=== PATIENT | female | born 1960 | race Caucasian/White ===

== ENCOUNTER → 2016-05-15 | Outpatient (CLI) | payer BC ==
--- NOTE | 2016-05-16 13:34 | MM ---
Reason for exam: screening (asymptomatic). Last mammogram was performed 1 year and 6 months ago. History: Patient is postmenopausal. Physical Findings: A clinical breast exam by your physician is recommended on an annual basis and results should be correlated with mammographic findings. MG Screening Mammo w CAD Bilateral CC and MLO view(s) were taken. Prior study comparison: November 16, 2014, bilateral MG screening mammo w CAD. December 31, 2012, bilateral digital screening mammo w/CAD. There are scattered fibroglandular densities. No significant changes when compared with prior studies. ASSESSMENT: Negative, BI-RAD 1 RECOMMENDATION: Routine screening mammogram of both breasts in 1 year.
== END | disposition home or self-care (01) ==
LOC: RADMAMWWP 09:13
PROVIDERS: ATTEND Family Medicine
DX: Z12.31 Encounter for screening mammogram for malignant neoplasm of breast (principal); Z78.0 Asymptomatic menopausal state

== ENCOUNTER → 2017-11-26 | Outpatient (CLI) | payer BC ==
--- NOTE | 2017-11-26 10:14 | XR ---
EXAMINATION TYPE: XR Hip Complete RT DATE OF EXAM: 11/26/2017 COMPARISON: NONE HISTORY: Pain TECHNIQUE: 2 views submitted FINDINGS: There is no evidence of erosive change or acute fracture. There is cystic change involving the acetabulum with hypertrophic changes along the lateral margin of the acetabulum. Spurring along the femoral head seen with moderate axial narrowing of the joint spac e. Surgical clip and calcification in the pelvis. IMPRESSION: 1. Arthropathy correlate for femoral acetabular impingement.
== END | disposition home or self-care (01) ==
LOC: RADXRMAIN 09:46
PROVIDERS: ATTEND Physician Assistant
DX: M16.11 Unilateral primary osteoarthritis, right hip (principal)
CPT/HCPCS: 73502

== ENCOUNTER → 2017-11-26 | Outpatient (CLI) | payer BC ==
--- NOTE | 2017-11-26 10:04 | BD ---
EXAMINATION TYPE: Axial Bone Density DATE OF EXAM: 11/26/2017 CLINICAL HISTORY: Height: 63.5 Weight: 155 FRAX RISK QUESTIONS: Alcohol (3 or more units per day): no Family History (Parent hip fracture): no Glucocorticoids (More than 3mos): no (Ex: prednisone, prednisolone, methylprednisolone, dexamethasone, and hydrocortisone). History of Fracture in Adulthood: yes Secondary Osteoporosis: 1. Type 1 Diabetes: no 2. Hyperthyroidism: no 3. Menopause before 45: complete hysterectomy age 46 4. Malnutrition: no 5. Chronic liver disease: no Rheumatoid Arthritis: unsure Current Tobacco Use: yes RISK FACTORS HISTORY OF: Surgery to Wrist (left): yes; for ganglion cyst removal Family History of Osteoporosis: yes, sister & mother Active: yes Diet low in dairy products/other sources of calcium: no Postmenopausal woman: yes Take estrogen and/or progesterone medications: no Lost more than 2 inches in height since high school: no Frequent falls: no Poor Health: no Hyperparathyroidism: no Adrenal Insufficiency: no MEDICATIONS: Prednisone or other steroids: no Thyroid Medications: no Osteoporosis Medications: no Additional Medications: Vitamin D, multivitamin Additional History: right hip pain for several years; history of broken toes & foot EXAM MEASUREMENTS: Bone mineral densitometry was performed using the [employer] System. Bone mineral density as measured about the Lumbar spine is: ----- L1-L4(G/cm2): 0.867 T Score Values are as follows: ----- L2: -2.8 ----- L3: -2.3 ----- L4: -2.3 ----- L1-L4: -2.6 Bone mineral density has: Increased 0.2% since study of: 12/15/2014 Bone mineral density about the R hip (g/cm2): 0.814 Bone mineral density about the L hip (g/cm2): 0.831 T Score values are as follows: -----R Neck: -1.6 -----L Neck: -1.5 -----R Total: -2.2 -----L Total: -1.7 Bone mineral density has: Decreased -3.5% since study of: 12/15/2014 IMPRESSION: Osteoporosis (T Score less than -2.5) persists in the low back. There remains increased fracture risk and therapy is usually indicated based on age. Re-Screen 1-2 years. NOTE: T-SCORE=SD OF THE YOUNG ADULT MEAN.
--- NOTE | 2017-11-27 11:31 | MM ---
Reason for exam: screening (asymptomatic). Last mammogram was performed 1 year and 6 months ago. History: Patient is postmenopausal and history of other cancer. Physical Findings: A clinical breast exam by your physician is recommended on an annual basis and results should be correlated with mammographic findings. MG Screening Mammo w CAD Bilateral CC and MLO view(s) were taken. Technologist: RT Lynette (R)(M) Prior study comparison: May 15, 2016, bilateral MG screening mammo w CAD. November 16, 2014, bilateral MG screening mammo w CAD. There are scattered fibroglandular densities. No significant changes when compared with prior studies. ASSESSMENT: Benign, BI-RAD 2 RECOMMENDATION: Routine screening mammogram of both breasts in 1 year.
== END | disposition home or self-care (01) ==
LOC: RADMAMWWP 08:57
PROVIDERS: ATTEND Family Medicine
DX: Z12.31 Encounter for screening mammogram for malignant neoplasm of breast (principal); M81.0 Age-related osteoporosis without current pathological fracture
CPT/HCPCS: 77067; 77080

== ENCOUNTER → 2018-12-02 | Outpatient (CLI) | payer BC ==
--- NOTE | 2018-12-03 11:30 | MM ---
Reason for exam: screening (asymptomatic). Last mammogram was performed 1 year ago. History: Patient is postmenopausal and history of other cancer. Physical Findings: A clinical breast exam by your physician is recommended on an annual basis and results should be correlated with mammographic findings. MG 3D Screening Mammo W/Cad Bilateral CC and MLO view(s) were taken. XCCL view(s) were taken of the left breast. Prior study comparison: November 26, 2017, bilateral MG screening mammo w CAD. May 15, 2016, bilateral MG screening mammo w CAD. There are scattered fibroglandular densities. Focal asymmetry right CC middle depth outer 24/62 view and second lesion MLO 20/63 anterior central view. This finding is changed when compared with previous exams. ASSESSMENT: Incomplete: need additional imaging evaluation, BI-RAD 0 RECOMMENDATION: Special view mammogram of the right breast. If lesion persists on supplemental views, image directed ultrasound is recommended. [facility] will attempt to contact patient to return for supplemental views and ultrasound if indicated.
== END | disposition home or self-care (01) ==
LOC: RADMAMWWP 10:21
PROVIDERS: ATTEND Family Medicine
DX: Z12.31 Encounter for screening mammogram for malignant neoplasm of breast (principal); Z78.0 Asymptomatic menopausal state
CPT/HCPCS: 77063; 77067

== ENCOUNTER → 2018-12-11 | Outpatient (CLI) | payer BC ==
--- NOTE | 2018-12-11 15:00 | MM ---
Reason for exam: additional evaluation requested from abnormal screening. Last mammogram was performed less than 1 month ago. History: Patient is postmenopausal and history of other cancer. Physical Findings: Nurse did not find any significant physical abnormalities on exam. MG 3D Work Up W/Cad RT Spot compression CC, spot compression MLO, and ML view(s) were taken of the right breast. Prior study comparison: December 02, 2018, bilateral MG 3d screening mammo w/cad. November 26, 2017, bilateral MG screening mammo w CAD. There are scattered fibroglandular densities. Nodular density outer half right breast. These results were verbally communicated with the patient and result sheet given to the patient on 12/11/18. ASSESSMENT: Incomplete: need additional imaging evaluation, BI-RAD 0 RECOMMENDATION: Ultrasound of the right breast.
--- NOTE | 2018-12-11 15:01 | USB ---
Reason for exam: additional evaluation requested from abnormal screening. History: Patient is postmenopausal and history of other cancer. US Breast Workup Limited RT Right limited breast ultrasound including focal area of concern, retroareolar and axilla demonstrates a 6 x 3 x 4mm oval, cystic lesion at 9 o'clock. These results were verbally communicated with the patient and result sheet given to the patient on 12/11/18. ASSESSMENT: Benign, BI-RAD 2 RECOMMENDATION: Return to routine screening mammogram schedule for both breasts.
== END | disposition home or self-care (01) ==
LOC: RADMAMWWP 13:32
PROVIDERS: ATTEND Family Medicine
DX: R92.8 Other abnormal and inconclusive findings on diagnostic imaging of breast (principal)
CPT/HCPCS: 77061; 77065

== ENCOUNTER 2019-12-31 08:21 | Day surgery (SDC) | payer BC ==
[2019-12-30 08:46] VITALS: BMI 28.0
[2019-12-31 08:50] VITALS: RESP 16; TEMP 98.2
[2019-12-31] MEDS: LACTATED RINGERS 1,000 ML IV SCH ×2 (09:00→09:10)
[2019-12-31] MEDS ORDERED: MIDAZOLAM 2 MG/2 ML VIAL ONE (09:11)
[2019-12-31] MEDS ORDERED: PROPOFOL 10 MG/ML 20 ML VIAL IV ONE (09:11)
[2019-12-31] MEDS ORDERED: fentaNYL (PF) 50 MCG/ML 2 ML AMP ONE (09:11)
--- NOTE | 2019-12-31 09:13 | P.GSHP ---
History of Present Illness H&P Date: 12/31/19 Chief Complaint: Screening colonoscopy This 59-year-old female who presents today for screening colonoscopy. Patient denies any significant GI complaints. Past Medical History Past Medical History: Hyperlipidemia Additional Past Medical History / Comment(s): SEASONAL ALLERGIES History of Any Multi-Drug Resistant Organisms: None Reported Past Surgical History: Appendectomy, Cholecystectomy, Hysterectomy Additional Past Surgical History / Comment(s): COLONOSCOPY Past Anesthesia/Blood Transfusion Reactions: No Reported Reaction Smoking Status: Current every day smoker - Past Family History Father Family Medical History: Cancer Mother Family Medical History: Cancer Sister(s) Family Medical History: Cancer Additional Family Medical History / Comment(s): HAS 2 SISTERS WITH THYROID CANCER Medications and Allergies Home Medications Medication Instructions Recorded Confirmed Type ALPRAZolam [Xanax] 0.5 mg PO BID PRN 12/25/17 12/31/19 History Albuterol Sulfate [Proair Hfa] 1 - 2 puff INHALATION Q6HR PRN 12/25/17 12/31/19 History Atorvastatin [Lipitor] 20 mg PO DAILY 12/25/17 12/31/19 History Fluticasone Nasal Armstrong [Flonase 1 spray EA NOSTRIL DAILY PRN 12/25/17 12/31/19 History Nasal Armstrong] Loratadine [Claritin] 10 mg PO DAILY 12/30/19 12/31/19 History Allergies Allergy/AdvReac Type Severity Reaction Status Date / Time clarithromycin [From Biaxin] AdvReac Nausea & Verified 12/31/19 08:45 Vomiting Penicillins AdvReac Nausea & Verified 12/31/19 08:45 Vomiting Surgical - Exam Vital Signs Temp Pulse Resp BP Pulse Ox 98.2 F 84 16 180/94 97 12/31/19 08:49 12/31/19 08:49 12/31/19 08:49 12/31/19 08:49 12/31/19 08:49 - General well developed, well nourished, no distress - Eyes PERRL - ENT normal pinna - Neck no masses - Respiratory normal expansion - Cardiovascular Rhythm: regular - Abdomen Abdomen: soft, non tender Assessment and Plan Assessment: We'll perform screen colonoscopy.
--- NOTE | 2019-12-31 09:23 | P.OP ---
Date of Procedure: 12/31/19 Preoperative Diagnosis: Screening colonoscopy Postoperative Diagnosis: Diverticulosis Procedure(s) Performed: Colonoscopy Anesthesia: MAC Surgeon: Cuong Chang Pathology: none sent Condition: stable Disposition: PACU Description of Procedure: The patient's placed on the endoscopy table in the lateral position. He received IV sedation. Digital rectal exam was performed which revealed no abnormalities. Flexible colonoscope was then placed patient anus passed rotator entire colon. The ileocecal valve visualized. The cecum, ascending transverse appeared normal in the descending; there is extensive diverticular changes. Scope was then brought back the rectum this appeared normal. Scope was wi thdrawn for patient. .
[2019-12-31 09:43] VITALS: BP 142/97; PULSE 66
== END 2019-12-31 09:58 | disposition home or self-care (01) ==
LOC: ORWHC2ENDO 08:21
PROVIDERS: ATTEND Surgery
DX: Z12.11 Encounter for screening for malignant neoplasm of colon (principal); K57.30 Diverticulosis of large intestine without perforation or abscess without bleeding; E78.5 Hyperlipidemia, unspecified; F17.210 Nicotine dependence, cigarettes, uncomplicated; J45.909 Unspecified asthma, uncomplicated; Z88.0 Allergy status to penicillin; Z88.1 Allergy status to other antibiotic agents; Z79.899 Other long term (current) drug therapy; Z90.710 Acquired absence of both cervix and uterus; Z98.891 History of uterine scar from previous surgery; Z98.890 Other specified postprocedural states; Z80.9 Family history of malignant neoplasm, unspecified; Z80.8 Family history of malignant neoplasm of other organs or systems
CPT/HCPCS: J2250; J3010; J2704; G0121; 45378

== ENCOUNTER → 2020-02-05 | Outpatient (CLI) | payer BC ==
--- NOTE | 2020-02-08 10:07 | MM ---
Reason for exam: screening (asymptomatic). Last mammogram was performed 1 year and 2 months ago. History: Patient is postmenopausal and history of other cancer. Physical Findings: A clinical breast exam by your physician is recommended on an annual basis and results should be correlated with mammographic findings. MG 3D Screening Mammo W/Cad Bilateral CC and MLO view(s) were taken. Prior study comparison: December 11, 2018, right breast MG 3d work up w/cad RT. December 02, 2018, bilateral MG 3d screening mammo w/cad. The breast tissue is heterogeneously dense. This may lower the sensitivity of mammography. There is no discrete abnormality. No significant changes when compared with prior studies. ASSESSMENT: Negative, BI-RAD 1 RECOMMENDATION: Routine screening mammogram of both breasts in 1 year.
== END | disposition home or self-care (01) ==
LOC: RADMAMWWP 09:54
PROVIDERS: ATTEND Family Medicine
DX: Z12.31 Encounter for screening mammogram for malignant neoplasm of breast (principal)
CPT/HCPCS: 77063; 77067

== ENCOUNTER → 2020-11-28 | Outpatient (CLI) | payer BC ==
--- NOTE | 2020-11-29 12:34 | MM ---
Reason for exam: screening (asymptomatic). Last mammogram was performed 10 months ago. History: Patient is postmenopausal and history of other cancer. Physical Findings: A clinical breast exam by your physician is recommended on an annual basis and results should be correlated with mammographic findings. MG 3D Screening Mammo W/Cad Bilateral CC and MLO view(s) were taken. Prior study comparison: February 05, 2020, bilateral MG 3d screening mammo w/cad. December 11, 2018, right breast MG 3d work up w/cad RT. There are scattered fibroglandular densities. There is no discrete abnormality. ASSESSMENT: Negative, BI-RAD 1 RECOMMENDATION: Routine screening mammogram of both breasts in 1 year.
== END | disposition home or self-care (01) ==
LOC: RADMAMWWP 13:37
PROVIDERS: ATTEND Family Medicine
DX: Z12.31 Encounter for screening mammogram for malignant neoplasm of breast (principal); Z78.0 Asymptomatic menopausal state
CPT/HCPCS: 77063; 77067

== ENCOUNTER → 2021-05-03 | Outpatient (CLI) | payer BC ==
--- NOTE | 2021-05-03 10:21 | BD ---
EXAMINATION TYPE: Axial Bone Density DATE OF EXAM: 05/03/2021 COMPARISON: NONE CLINICAL HISTORY: 60 years year old Female. ICD-10 CODE: Z78.0 MENOPAUSAL STATE Height: 5 FT 3 1/2 IN Weight: 158 FRAX RISK QUESTIONS: Alcohol (3 or more units per day): NO Family History (Parent hip fracture): NO Glucocorticoids (More than 3mos): NO (Ex: prednisone, prednisolone, methylprednisolone, dexamethasone, and hydrocortisone). History of Fracture in Adulthood: YES Secondary Osteoporosis: 1. Type 1 Diabetes: NO 2. Hyperthyroidism: NO 3. Menopause before 45: YES 4. Malnutrition: NO 5. Chronic liver disease: NO Rheumatoid Arthritis: NO Current Tobacco Use: YES RISK FACTORS HISTORY OF: Surgery to Spine/Hip(right/left)/Wrist (right/left): NO Family History of Osteoporosis: YES Active: YES Diet low in dairy products/other sources of calcium: NO Postmenopausal woman: YES Take estrogen and/or progesterone medications: NO Lost more than 2 inches in height since high school: NO Frequent falls: NO Poor Health: GOOD Hyperparathyroidism: NO Adrenal Insufficiency: NO MEDICATIONS: Additional Medications: LIPITOR, ALLERGY MEDS, FLONASE, INHALER FOR ASTHMA Additional History: EXAM MEASUREMENTS: Bone mineral densitometry was performed using the [employer] System. Bone mineral density as measured about the Lumbar spine is: ----- L1-L4(G/cm2): 0.885 T Score Values are as follows: ----- L1: -3.3 ----- L2: -2.8 ----- L3: -2.2 ----- L4: -1.9 ----- L1-L4: -2.5 Bone mineral density has: INCREASED 2.3 % since study of: 2017 Bone mineral density about the R hip (g/cm2): 0.787 Bone mineral density about the L hip (g/cm2): 0.800 T Score values are as follows: -----R Neck: -1.8 -----L Neck: -1.7 -----R Total: --2.4 -----L Total: -2.0 Bone mineral density has: DECREASED -4.3 % since study of: 2018 FRAX%s: The graph provided illustrates a 15.2 % chance for a major osteoporotic fx and a 2.9 % chance for the hips probability for fx in 10 years time. IMPRESSION: Osteoporosis lumbar spine NOTE: T-SCORE=SD OF THE YOUNG ADULT MEAN.
== END | disposition home or self-care (01) ==
LOC: RADBDWWP 09:11
PROVIDERS: ATTEND Family Medicine
DX: M81.0 Age-related osteoporosis without current pathological fracture (principal); Z78.0 Asymptomatic menopausal state
CPT/HCPCS: 77080

== ENCOUNTER → 2021-09-15 | Outpatient (CLI) | payer BC ==
[~2021-09-15] MED LIST: REGADENOSON 0.4 MG/5 ML SYRINGE IV PRN
--- NOTE | 2021-09-15 10:50 | CA ---
Lexiscan Nuclear Stress Test Report Name: Nicci Palmer Exam Date: 09/15/2021 09:23 Exam Location: [place] Stress Ht (in): 64 Wt (lb): 158 BSA: 1.77 Ordering Phys: Artur Porter MD Referring Phys: German, Technologist: Josiah Summers Age: 61 Gender: F : 1960 Procedure CPT: Indications: I10,ESSENTIAL (PRIMARY) HYPERTENSION ICD-10 Codes: Patient History: Hypertension and shortness of breath Medications: Meds past 24 hrs: Pretest Chest Pain: STRESS TEST Lexiscan Protocol Exercise Duration (min:sec): 02:[address] Depressions (mm): Angina Score: Arriaga Score: Resting HR (bpm): 64 Peak HR (bpm): 111 Resting BP (mmHg): 142 / 78 Peak BP (mmHg): 148 / 68 MPHR: 161 Target HR: 137 % MPHR: 69 METS: 1.0 Total Dose: Peak Dose: Atropine: Double Product: [id number] BP Response: Stress Termination: infusion complete Stress Symptoms: Dyspnea and some epigastric pain. Resolved quickly Stress Summary: ECG ANALYSIS Resting ECG: Stress ECG: CONCLUSIONS Baseline EKG revealed normal sinus rhythm with minor nonspecific ST abnormality. With Lexiscan mentation the heart rate changing from exterior to 100 bpm and the blood pressure changed from 142/78-121/57 and came back to baseline. Patient had transient dyspnea. EKG remained unchanged. The nuclear scan results which are more pertinent will be reported by the radiologist Dr. Abigail Ojeda MD (Electronically Signed) Final Date: 15 September 2021 10:49
--- NOTE | 2021-09-15 11:47 | CA ---
Transthoracic Echo Report Name: Nicci Palmer Age: 61 Gender: F : 1960 Exam Date: 09/15/2021 08:45 Exam Location: [place] Echo Ht (in): 64 Wt (lb): 158 Ordering Physician: Artur Porter MD Attending/Referring Phys: [id number], German Radiosonde Operator Nimco Balbuena, [facility] Procedure CPT: Indications: I10,ESSENTIAL (PRIMARY) HYPERTENSION Cardiac Hx: Technical Quality: Good Contrast 1: Total Dose (mL): Contrast 2: Total Dose (mL): MEASUREMENTS (Male / Female) Normal Values 2D ECHO LV Diastolic Diameter PLAX 4.2 cm 4.2 - 5.9 / 3.9 - 5.3 cm LV Systolic Diameter PLAX 2.8 cm IVS Diastolic Thickness 1.1 cm 0.6 - 1.0 / 0.6 - 0.9 cm LVPW Diastolic Thickness 1.0 cm 0.6 - 1.0 / 0.6 - 0.9 cm LV Relative Wall Thickness 0.5 RV Internal Dim ED PLAX 2.9 cm LA Systolic Diameter LX 3.1 cm 3.0 - 4.0 / 2.7 - 3.8 cm LA Volume 42.6 cm??? 18 - 58 / 22 - 52 cm??? M-MODE Aortic Root Diameter MM 3.1 cm MV E Point Septal Separation 0.9 cm AV Cusp Separation MM 2.1 cm DOPPLER AV Peak Velocity 119.8 cm/s AV Peak Gradient 5.7 mmHg MV Area PHT 2.3 cm??? Mitral E Point Velocity 52.9 cm/s Mitral A Point Velocity 82.6 cm/s Mitral E to A Ratio 0.6 MV Deceleration Time 335.2 ms MV E' Velocity 3.7 cm/s Mitral E to MV E' Ratio 14.3 TR Peak Velocity 231.3 cm/s TR Peak Gradient 21.4 mmHg Right Ventricular Systolic Press 25.7 mmHg FINDINGS Left Ventricle Left ventricular ejection fraction is estimated at 55-60 %. Left ventricular cavity size normal. Borderline left ventricular hypertrophy. Right Ventricle Normal right ventricular size and function. Right ventricular systolic pressure within normal limits. Right Atrium Normal right atrial size. Left Atrium Normal left atrial size. No evidence for an atrial septal defect. Mitral Valve Structurally normal mitral valve. No mitral stenosis, regurgitation or prolapse. Aortic Valve Trileaflet aortic valve. No aortic valve stenosis or regurgitation. Tricuspid Valve Mild tricuspid regurgitation. Pulmonic Valve Structurally normal pulmonic valve. Pericardium Normal pericardium. No pericardial effusion. Aorta Normal size aortic root and proximal ascending aorta. CONCLUSIONS Normal LV size and systolic function. No significant abnormality on the Doppler exam. No pericardial effusion Previewed by: Dr. Abigail Ojeda MD (Electronically Signed) Final Date: 15 September 2021 11:46
--- NOTE | 2021-09-15 17:47 | NM ---
EXAMINATION TYPE: NM stress lexiscan cardiolite DATE OF EXAM: 09/15/2021 COMPARISON: NONE HISTORY: 61-year-old female I10, ESSENTIAL (PRIMARY) HYPERTENSION TECHNIQUE: After the intravenous administration of 9.4 mCi Tc 99m Sestamibi - Cardiolite resting SPE CT images acquired 50 minutes post injection. The patient received 0.4mg Lexiscan, 24.4 mCi Tc 99m Sestamibi - Stress images obtained [address] injection FINDINGS: Review of stress and rest SPECT images demonstrates no distinct perfusion abnormality. Gated analysi s shows global hypokinesis with an estimated left ventricular ejection fraction of 42 %. TID is calc ulated at 1.21, increased. IMPRESSION: Global hypokinesis with diminished LVEF of 42% and abnormally increased TID of 1.21. Further workup for potential multivessel balanced, inducible ischemia is advised.
== END | disposition home or self-care (01) ==
LOC: RADNMMAIN 07:48
PROVIDERS: ATTEND Family Medicine
DX: I07.1 Rheumatic tricuspid insufficiency (principal); I10 Essential (primary) hypertension
CPT/HCPCS: 93017; 93306; 78452; A9500; J2785

== ENCOUNTER → 2021-12-29 | Outpatient (CLI) | payer BC ==
--- NOTE | 2022-01-01 07:54 | MM ---
Reason for Exam: Screening (asymptomatic). Last mammogram was performed 1 year(s) and 1 month(s) ago. Patient History: Menarche at age 14. First Full-Term at age 25. Left ovary removed at age 46. Right ovary removed at age 46. Hysterectomy at age 46. Postmenopausal. Other cancer. Risk Values: Amy 5 year model risk: 1.2%. NCI Lifetime model risk: 6.7%. Prior Study Comparison: 12/11/2018 Right Diagnostic Mammogram, [facility]. 02/05/2020 Bilateral Screening Mammogram, [facility]. 11/28/2020 Bilateral Screening Mammogram, [facility]. Tissue Density: There are scattered fibroglandular densities. Findings: Analyzed By CAD. Stable 5 mm obscured mass in the upper outer aspect right breast from several prior mammograms. Benign-appearing right axillary lymph nodes redemonstrated. There is no suspicious new group of microcalcifications or new suspicious mass in either breast. Overall Assessment: Benign, BI-RAD 2 Management: Screening Mammogram of both breasts in 1 year. A clinical breast exam by your physician is recommended on an annual basis and results should be correlated with mammographic findings. Electronically signed and approved by: Darryn Lee M.D.
== END | disposition home or self-care (01) ==
LOC: RADMAMWWP 09:33
PROVIDERS: ATTEND Family Medicine
DX: Z12.31 Encounter for screening mammogram for malignant neoplasm of breast (principal); Z78.0 Asymptomatic menopausal state; Z98.890 Other specified postprocedural states
CPT/HCPCS: 77063; 77067

== ENCOUNTER → 2022-02-24 | Outpatient (CLI) | payer BC ==
[2022-02-24 16:49] LABS: African American GFR (CKD) 109.9 (60.0-200.0); Anion Gap 10.7 mmol/L (10.00-18.00); BUN/Creat Ratio 10.71 Ratio (12.00-20.00); Blood Urea Nitrogen 7.5 mg/dL (9.0-27.0); Calcium 9.8 mg/dL (8.7-10.3); Carbon Dioxide 28.3 mmol/L (20.0-27.5); Magnesium 1.8 mg/dL (1.5-2.4); Non-African American GFR(CKD) 94.8 (60.0-200.0); Potassium 4.4 mmol/L (3.5-5.5)
== END | disposition home or self-care (01) ==
LOC: LABWHC1 11:12
PROVIDERS: ATTEND Nurse Practitioner Adult Health
DX: I10 Essential (primary) hypertension (principal)
CPT/HCPCS: 36415; 80048; 83735

== ENCOUNTER → 2023-01-23 | Outpatient (CLI) | payer BC ==
--- NOTE | 2023-01-27 18:02 | MM ---
Reason for Exam: Screening (asymptomatic). Last mammogram was performed 1 year(s) and 1 month(s) ago. Patient History: Menarche at age 14. First Full-Term at age 25. Left ovary removed at age 46. Right ovary removed at age 46. Hysterectomy at age 46. Postmenopausal. Other cancer. Risk Values: Amy 5 year model risk: 1.3%. NCI Lifetime model risk: 6.6%. Prior Study Comparison: 02/05/2020 Bilateral Screening Mammogram, [facility]. 11/28/2020 Bilateral Screening Mammogram, [facility]. 12/29/2021 Bilateral MG 3D screening mammo w/cad, [facility]. Tissue Density: There are scattered fibroglandular densities. Findings: Analyzed By CAD. Unchanged bilateral areas of asymmetric densities. There is no suspicious group of microcalcifications or new suspicious mass in either breast. Overall Assessment: Benign, BI-RAD 2 Management: Screening Mammogram of both breasts in 1 year. . Patient should continue monthly self-breast exams. A clinical breast exam by your physician is recommended on an annual basis. This exam should not preclude additional follow-up of suspicious palpable abnormalities. Note on Amy scores and lifetime risk: 1. A Amy score greater than 3% is considered moderate risk. If this is the case, consider specialist referral to assess eligibility for a risk reducing agent. 2. If overall lifetime risk for the development of breast cancer is 20% or higher, the patient may qualify for future screening with alternating mammogram and breast MRI. Electronically signed and approved by: Conrado Oshea M.D. Radiologist
== END | disposition home or self-care (01) ==
LOC: RADMAMWWP 11:12
PROVIDERS: ATTEND Family Medicine
DX: Z12.31 Encounter for screening mammogram for malignant neoplasm of breast (principal); Z78.0 Asymptomatic menopausal state
CPT/HCPCS: 77063; 77067

== ENCOUNTER → 2023-04-29 | Outpatient (CLI) | payer BC ==
--- NOTE | 2023-04-29 21:42 | XR ---
EXAMINATION TYPE: XR chest 2V DATE OF EXAM: 04/29/2023 5:14 PM CLINICAL INDICATION:Female, 62 years old with history of J45.21 MILD INTERMITTENT ASTHMA WITH (ACUTE) EXACERBATION; [facility] COMPARISON: None TECHNIQUE: XR chest 2V Frontal and lateral views of the chest. FINDINGS: Lungs/Pleura: There is no evidence of pleural effusion, focal consolidation, or pneumothorax. Pulmonary vascularity: Unremarkable. Heart/mediastinum: Cardiomediastinal silhouette is unremarkable. Musculoskeletal: No acute osseous pathology. IMPRESSION: No acute cardiopulmonary disease/process.
== END | disposition home or self-care (01) ==
LOC: RADXRMAIN 16:46
PROVIDERS: ATTEND Family Medicine
DX: J45.21 Mild intermittent asthma with (acute) exacerbation (principal)
CPT/HCPCS: 71046

== ENCOUNTER → 2023-06-18 | Outpatient (CLI) | payer BC | LOC: CPPFTMAIN 15:44 | PROVIDERS: ATTEND Family Medicine | DX: J45.909 Unspecified asthma, uncomplicated (principal); F17.200 Nicotine dependence, unspecified, uncomplicated; Z88.1 Allergy status to other antibiotic agents; Z88.0 Allergy status to penicillin | CPT/HCPCS: 94060; 94726; 94729 ==

== ENCOUNTER → 2024-02-05 | Outpatient (CLI) | payer BC ==
--- NOTE | 2024-02-06 08:07 | MM ---
Reason for Exam: Screening (asymptomatic). Last screening mammogram was performed 12 month(s) ago. Patient History: Menarche at age 14. First Full-Term at age 25. Left ovary removed at age 46. Right ovary removed at age 46. Hysterectomy at age 46. Postmenopausal. Other cancer. Risk Values: Amy 5 year model risk: 1.3%. NCI Lifetime model risk: 6.4%. Prior Study Comparison: 11/26/2017 Bilateral Screening Mammogram, [facility]. 12/02/2018 Bilateral Screening Mammogram, [facility]. 12/11/2018 Right Diagnostic Mammogram, [facility]. 02/05/2020 Bilateral Screening Mammogram, [facility]. 11/28/2020 Bilateral Screening Mammogram, [facility]. 12/29/2021 Bilateral MG 3D screening mammo w/cad, [facility]. 01/23/2023 Bilateral MG 3D screening mammo w/cad, [facility]. Tissue Density: There are scattered areas of fibroglandular density. Findings: Analyzed By CAD. There is no suspicious group of microcalcifications or new suspicious mass in either breast. Overall Assessment: Benign, BI-RAD 2 Management: Screening Mammogram of both breasts in 1 year. . Patient should continue monthly self-breast exams. A clinical breast exam by your physician is recommended on an annual basis. This exam should not preclude additional follow-up of suspicious palpable abnormalities. Note on Amy scores and lifetime risk: 1. A Amy score greater than 3% is considered moderate risk. If this is the case, consider specialist referral to assess eligibility for a risk reducing agent. 2. If overall lifetime risk for the development of breast cancer is 20% or higher, the patient may qualify for future screening with alternating mammogram and breast MRI. [facility], , 02/06/2024 8:03 AM. Electronically signed and approved by: Daryn Dukes M.D. Radiologis
== END | disposition home or self-care (01) ==
LOC: RADMAMWWP 10:01
PROVIDERS: ATTEND Family Medicine
DX: Z12.31 Encounter for screening mammogram for malignant neoplasm of breast (principal); R92.323 Mammographic fibroglandular density, bilateral breasts; Z78.0 Asymptomatic menopausal state; Z90.722 Acquired absence of ovaries, bilateral
CPT/HCPCS: 77063; 77067

== ENCOUNTER → 2024-08-28 | Outpatient (CLI) | payer BC ==
[2024-08-28 08:57] LABS: INR 0.9 (<1.2); Partial Thromboplastin Time 25.6 sec (22.0-30.0); Prothrombin Time 10.6 sec (10.0-12.5)
[2024-08-28 10:17] LABS: HCT 47.3 % (37.2-46.3); HGB 15.4 g/dL (12.0-15.0); MCH 29.4 pg (27.0-32.0); MCHC 32.6 g/dL (32.0-37.0); MCV 90.4 FL (80.0-97.0); NRBC Per 100 WBC 0 X 10*3/uL (0.00-0.01); Platelet Count 346 X 10*3/uL (140-440); RBC 5.23 X 10*6/uL (4.10-5.20); RDW 13.7 % (11.5-14.5); WBC 7.48 X 10*3/uL (4.50-10.00)
[2024-08-28 10:29] LABS: ALT 21 U/L (8-44); AST 21 U/L (13-35); Albumin 4.3 g/dL (3.8-4.9); Albumin/Globulin Ratio 1.95 Ratio (1.60-3.17); Alkaline Phosphatase 101 U/L (41-126); Anion Gap 9.70 mmol/L (4.00-12.00); BUN/Creat Ratio 16.00 Ratio (12.00-20.00); Blood Urea Nitrogen 9.6 mg/dL (9.0-27.0); Calcium 9.5 mg/dL (8.7-10.3); Carbon Dioxide 26.3 mmol/L (21.6-31.8); Chloride 99 mmol/L (96-109); Globulin 2.2 g/dL (1.6-3.3); Glucose 68 mg/dL (70-110); Potassium 4.4 mmol/L (3.5-5.5); Sodium 135 mmol/L (135-145); Total Protein 6.5 g/dL (6.2-8.2)
== END | disposition home or self-care (01) ==
LOC: LABPAT 07:34
PROVIDERS: ATTEND Orthopaedic Surgery
DX: Z01.812 Encounter for preprocedural laboratory examination (principal); Z22.322 Carrier or suspected carrier of Methicillin resistant Staphylococcus aureus; M16.11 Unilateral primary osteoarthritis, right hip; E11.9 Type 2 diabetes mellitus without complications
CPT/HCPCS: 80053; 83036; 85027; 85610; 85730; 86850; 86900; 86901; 87070

== ENCOUNTER 2024-09-04 13:43 | Day surgery (SDC) | payer BC ==
[2024-09-01 09:28] VITALS: BMI 28.8
[~2024-09-04 13:43] MED LIST changes: +LIDOCAINE 1% (10MG/ML) FOR IV START INTRADERMA PRN; +ONDANSETRON 4 MG/2 ML VIAL IVP PRN; -REGADENOSON 0.4 MG/5 ML SYRINGE IV PRN; +TRANEXAMIC 1,000 MG/100ML-NACL 1,000 MG in SALINE 1 100ML.BAG IV PRN; +TRANEXAMIC 1,000 MG/100ML-NACL 1,000 MG in SALINE 1 100ML.BAG IVPB PRN
[2024-09-04] MEDS: IV FLUID CONTINUATION 1,000 ML IV ONE (14:00)
[2024-09-04] MEDS: LACTATED RINGERS 1,000 ML IV SCH (14:22)
[2024-09-04] MEDS: KETOROLAC 15 MG/ML 1 ML VIAL IVP PRN (14:29)
[2024-09-04] MEDS: FAMOTIDINE 20 MG/2 ML VIAL IVP PRN (14:29)
[2024-09-04] MEDS: DEXAMETHASONE SOD PHOSPHATE 10 MG/ML 1 ML VIAL IV PRN (14:30)
[2024-09-04] MEDS: ONDANSETRON 4 MG/2 ML VIAL IVP ONE (14:30)
[2024-09-04] MEDS: ACETAMINOPHEN TAB 500 MG TAB PO PRN (14:30)
[2024-09-04] MEDS: DOCUSATE 100 MG CAP PO PRN (14:30)
[2024-09-04] MEDS: oxyCODONE ER 10 MG TAB.ER.12H PO PRN (14:30)
[2024-09-04] MEDS: fentaNYL (PF) 50 MCG/ML 2 ML AMP IVP PRN (14:55)
[2024-09-04] MEDS: MIDAZOLAM 2 MG/2 ML VIAL IV ONE (15:00)
[2024-09-04] MEDS ORDERED: ROCURONIUM 10 MG/ML (5 ML VIAL) IV ONE (15:12)
[2024-09-04] MEDS ORDERED: DEXAMETHASONE SOD PHOSPHATE 4 MG/ML 1 ML VIAL ONE (15:12)
[2024-09-04] MEDS ORDERED: NEOSTIGMINE 1 MG/ML 10 ML VIAL ONE (15:12)
[2024-09-04] MEDS ORDERED: LIDOCAINE 4% LTA KIT (4 ML) TOPICAL ONE (15:12)
[2024-09-04] MEDS ORDERED: TRANEXAMIC 1,000 MG/100ML-NACL PREMIX BAG ONE (15:12)
[2024-09-04] MEDS ORDERED: PROPOFOL 10 MG/ML 20 ML VIAL IV ONE (15:12)
[2024-09-04] MEDS ORDERED: GLYCOPYRROLATE 0.2 MG/ML 2 ML VIAL ONE (15:12)
[2024-09-04] MEDS ORDERED: ROPIVACAINE 5 MG/ML 30 ML VIAL ONE (15:12)
[2024-09-04] MEDS ORDERED: PHENYLEPHRINE-0.9% NACL SYG 1,000 MCG/10 ML SYRINGE ONE (15:12)
[2024-09-04] MEDS ORDERED: LIDOCAINE 1% INJ 10MG/ML (20 ML MDV) ONE (15:12)
[2024-09-04] MEDS ORDERED: SUCCINYLCHOLINE CHLORIDE 200 MG/10 ML VIAL IV ONE (15:12)
[2024-09-04] MEDS ORDERED: fentaNYL (PF) 50 MCG/ML 2 ML AMP ONE (15:12)
[2024-09-04] MEDS: ROPIVACAINE/EPI/CLONIDINE/KET 50 ML SYRINGE MISCELLANE PRN (15:49)
[2024-09-04] MEDS: LACTATED RINGERS 1,000 ML IV ONE (17:02)
[2024-09-04] MEDS ORDERED: TEMAZEPAM 15 MG CAP PO PRN (17:26)
[2024-09-04] MEDS ORDERED: HYDROmorphone 0.5 MG/0.5 ML SYRINGE IVP PRN ×2 (17:26)
[2024-09-04] MEDS ORDERED: NALOXONE 0.4 MG/ML 1 ML VIAL IV PRN (17:26)
[2024-09-04] MEDS ORDERED: HYDROcodone/APAP 5-325MG 1 EACH TAB PO PRN (17:26)
[2024-09-04] MEDS ORDERED: MAGNESIUM HYDROXIDE 2,400 MG/30 ML CUP PO PRN (17:26)
[2024-09-04] MEDS ORDERED: hydrOXYzine HCL 25 MG TAB PO PRN (17:26)
[2024-09-04] MEDS ORDERED: ONDANSETRON 4 MG/2 ML VIAL IVP PRN (17:26)
[2024-09-04] MEDS ORDERED: diazePAM 5 MG TAB PO PRN ×2 (17:26)
[2024-09-04] MEDS ORDERED: HYDROmorphone 1 MG/ML 1 ML SYRINGE IVP PRN (17:26)
--- NOTE | 2024-09-04 17:26 | P.OP ---
Date of Procedure: 09/04/24 Preoperative Diagnosis: 1. Severe right hip osteoarthritis 2. Current everyday cigarette smoker 3. Severe osteopenia Postoperative Diagnosis: Same Procedure(s) Performed: 1. Right direct anterior total hip arthroplasty 2. Application of negative pressure incisional wound VAC, right hip, less than 50 cm, DME, incision measuring 12 cm Implants: 1. Abhijit Trident II Acetabular Cup, Size #52 2. [place] Accolade C Size #4 Femoral Stem, Standard Offset 3. Biolox delta femoral head, 36 mm, +2.5 mm neck Anesthesia: GETA, regional Surgeon: Javed Evans Journeyman Plumber #1: Dain Salinas Estimated Blood Loss (ml): 300 IV fluids (ml): 800 Pathology: none sent Condition: stable Disposition: PACU Indications for Procedure: I had a long discussion with the patient in the office on the potential risks and complications of an elective total hip replacement through a direct anterior approach. Risks discussed include, but are certainly not limited to, risks from anesthesia, superficial infection requiring local wound care or antibiotics, deep rogers-prosthetic joint infection and the treatment required to eradicate infection, intraoperative fracture, postoperative periprosthetic fracture, bianca ge to local blood vessels or nerves particularly the lateral femoral cutaneous nerve, delayed wound healing requiring local wound care or possibly surgical debridement, hip dislocation, leg length discrepancy, soft tissue irritation around the total hip implant such as iliopsoas tendinitis or trochanteric bursitis, wear and osteolysis from the implants, squeaking or audible noises, groin pain, thigh pain, heterotopic ossification, stiffness, aseptic loosening of the implants, dissatisfaction with surgical outcome, need for revision surgery, DVT, PE, swelling of the operative extremity, acute coronary event, stroke, failure to thrive, and possibly loss of life or limb. The patient understands that while these are the most common complications after an elective hip replacement there are certainly other less common complications possible. They were given ample time to ask questions regarding the potential complications of a hip replacement. Following our discussion the patient provided their verbal and written consent to go forward with an elective total hip replacement. Operative Findings: Severe right hip osteoarthritis. The patient had exceedingly poor bone quality in her femur with a very poor cortical rim. Despite the patient's age of 64 I elected to use cemented femoral fixation due to the exceedingly poor bone quality in the proximal femur and her history of smoking. Description of Procedure: The patient was identified in the preoperative holding area and the correct hip was marked with my initials. I reviewed the procedure and consent with the patient. All of their questions were answered. The patient was then brought back into the operating room by anesthesia. While on the [facility] anesthesia was administered by the anesthesia team. Preoperative antibiotics and tranexamic acid were also given. After the patient was under anesthesia I examined their ankles to determine their preoperative leg length discrepancy. The skin over the anterior aspect of the hip was shaved to remove hair over the site of planned incision. Both feet and ankles were padded with webril and boots for the [place] were applied. The patient was then carefully transferred onto the [place] table. A perineal post was immediately placed. The arms were placed on arm holders and were well-padded. Both boots were secured to the spars on the [place] table. The patient was positioned so that the pelvis was centered over the post. Nonsterile drapes were applied. A timeout was performed identifying the correct patient, operative extremity, and procedure. At this point fluoroscopy was brought in to take preoperative images of the pelvis and operative hip. Using the standing AP pelvis from the office as a template, a comparable image was obtained with fluoroscopy. A metallic bar was used to create a bi-ischial line for use as a reference to leg length adjustments during the procedure. Global offset was also measured on both the operative and nonoperative leg. Fluoroscopy was then brought out and a pre-scrub using a chlorhexidine scrub brush was performed. The operative limb was then prepped and draped in the standard sterile fashion. An anterior longitudinal incision was made lateral and distal to the ASIS. The skin and subcutaneous tissues were incised sharply. The underlying tensor fascia was identified and incised in its midportion. The fascia was dissected free from the underlying muscle and the muscle belly was retracted. A blunt tipped cobra retractor was placed over the superior neck under the muscle fibers of the gluteus minimus. The deep enveloping fascia of the tensor was incised. The anterior leash of vessels were then identified and cauterized. The fascia between the rectus and the capsule was then incised and the pre-capsular fat was excised. A second Cobra was placed inferior to the neck. The interval between the rectus and iliocapsularis and the hip capsule was developed and a retractor was placed carefully over the anterior rim of the acetabulum. A T-shaped anterior capsulotomy was performed. The superior capsular leaflet was left in place in the inferior capsular flap was excised. The Cobra retractors were placed intracapsularly. We then made a femoral neck osteotomy according to preoperative and intraoperative templating and confirmed the level of the osteotomy using fluoroscopic imaging. The femoral head was removed, passed off to the back table, and sized. The superior capsular flap was excised. Retractors were placed circumferentially exposing the acetabulum. We then circumferentially debrided the acetabulum free of labrum and osteophytes. The pulvinar was removed to fully visualize the cotyloid fossa. We then sequentially reamed to achieve peripheral fit and excellent bleeding subchondral bone. The socket was thoroughly irrigated. The acetabular component was impacted into the appropriate position using fluoroscopy to guide version, inc lination, and depth of insertion taking care to have a comparable image of the AP pelvis to the standing image taken in the office. An excellent press-fit was achieved and final position was confirmed using fluoroscopy. The press fit was augmented with bony cancellus dome screws. The liner was then impacted into the socket. Attention was then turned to the femur. The remnant dorsal lateral capsule was excised. The short external rotators were visible and protected. A bone hook was used to confirm appropriate translation of the trochanter away from the acetabulum. The leg was then extended and adducted and the bone hook was used to elevate the femur for broaching. On inspection of the patient's proximal femur, they appeared to have poor bone quality so I elected to proceed with hector ented fixation of the femoral component. A box osteotome and blunt tipped canal sound was then utilized to gain access to the femoral canal. We then sequentially broached the femur in appropriate anteversion until torsional stability was achieved and the implant was felt to have reached the appropriate size to allow trialing. The neck cut was brought flush to the trial broach with a calcar planar. A trial neck and head were then placed onto the broach and the hip was atraumatically reduced under direct visualization. External rotation to 90 was performed to assess stability. Fluoroscopy was brought in. An AP and lateral fluoroscopic image of the proximal femur was obtained to assess position and fill of the trial broach. An AP of the pelvis was then obtained and matched to the preoperative image taken. A bi-ischial bar was then placed and measurements were taken to assess changes in length and offset. The hip was then carefully dislocated, the proximal femur was exposed, and the trial implants were removed. The proximal femur was then prepared for cementing. The canal was thoroughly irrigated with pulsatile lavage to remove blood and marrow contents. A cement restrictor was placed to a depth just distal to the tip of the final implant. Epinephrine-soaked gauze was then packed into the proximal femur. 2 bags of cement were then mixed using a centrifuge and placed into a cement gun. Anesthesia was notified that cementing was about to commence to make sure the patient was appropriately ventilated and hydrated. Once the cement had reached appropriate consistency, the cement gun was used to fill the canal in a retrograde fashion starting at the restrictor. Cement was then pressurized into the canal with a blue tipped web worker. The stem was then carefully introduced into the cement taking care to guide the implant into appropriate version. The stem was held in position until the cement had fully set. All extra cement was removed while the cement was hardening. The trunnion was cleansed and the final head was tapped into place to engage the Syed taper. The acetabulum was irrigated and visualized to be free of debris. The hip was carefully reduced. Stability was checked clinically with external rotation to 90 and there was no evidence of instability. Final fluoroscopic images were taken. The wound was then thoroughly irrigated and soaked with a dilute Betadine rinse for 3 minutes. 3 L of sterile saline was irrigated through the wound using pulsatile lavage. Local anesthetic cocktail was injected into the soft tissues around the surgical field. The wound was then closed in layers. An incisional wound VAC was placed over the surgical incision due to the patient's history of smoking. The drapes were taken down and the patient was carefully transferred off of the [place] table. Following removal of the boots the leg lengths felt acceptable. The patient was then taken to recovery room having tolerated the procedure well. Dain Salinas PA-C was required as a skilled hearing and speech assistant due to the complexity of surgery for patient positioning, draping, exposure, retraction, closure of wound and application of dressing. PLAN: The patient can weight-bear as tolerated on the operative extremity. 2 doses of postoperative antibiotics. DVT prophylaxis with aspirin 81 mg twice a day based on preoperative risk stratification. Physical therapy for gait training.
--- NOTE | 2024-09-04 17:39 | XR ---
EXAMINATION TYPE: XR Hip Limited RT, [place] guidance operating room Intraoperative/procedural fluoroscopi c services were provided. CLINICAL INDICATION:Female, 64 years old with history of OA RIGHT HIP; , [facility] FINDINGS: Post surgical changes from right hip arthroplasty. Hardware appears intact with appropriate alignment . No radiographic evidence for complication. Total fluoroscopy time is 1.30 min. DAP: 4.7404 Gycm2 Please see the operative/procedural note for further details. [facility], , 09/04/2024 5:36 PM
[2024-09-04] MEDS: HYDROmorphone 0.5 MG/0.5 ML SYRINGE IVP PRN (17:59)
[2024-09-04] MEDS: DEXAMETHASONE SOD PHOSPHATE 4 MG/ML 1 ML VIAL IV ONE (18:12)
[2024-09-04] MEDS: droPERidol 2.5 MG/ML VIAL IVP ONE ×2 (18:12→18:15)
[2024-09-04] MEDS: SODIUM CHLORIDE 0.9% 1,000 ML IV SCH (18:13)
[2024-09-04] MEDS: ASPIRIN 81 MG PO SCH (20:08)
[2024-09-04] MEDS: SENNOSIDES-DOCUSATE SODIUM 1 EACH TAB PO SCH (20:08)
[2024-09-04] MEDS ORDERED: ALBUTEROL NEBULIZED 2.5 MG/3 ML INHALATION PRN (21:55)
[2024-09-04] MEDS ORDERED: FLUTICASONE NASAL 50MCG/SPRAY 16GM BTL EA NOSTRIL PRN (21:55)
[2024-09-04] MEDS ORDERED: ALPRAZolam 0.5 MG TAB PO PRN (21:55)
[2024-09-04] MEDS: MONTELUKAST 10 MG TAB PO SCH (22:38)
[2024-09-05] MEDS: HYDROcodone/APAP 10-325MG 1 EACH TAB PO PRN (02:02)
[2024-09-05 07:43] VITALS: BP 101/63; PULSE 68; RESP 17; TEMP 98
[2024-09-05] MEDS: MULTIVITAMINS, THERA 1 EACH TAB PO SCH (07:55)
[2024-09-05] MEDS: LORATADINE 10 MG TAB PO SCH (07:55)
[2024-09-05] MEDS: FAMOTIDINE 20 MG TAB PO SCH (07:55)
[2024-09-05] MEDS: TIOTROPIUM 2.5 MCG INHALER INHALATION SCH (08:12)
[2024-09-05] MEDS: SYMBICORT 160-4.5 MCG INHALER INHALATION SCH (08:13)
[2024-09-05 08:54] LABS: Basophils # (A) 0.05 X 10*3/uL (0.00-0.10); Basophils % (A) 0.3 %; Eosinophils # (A) 0 X 10*3/uL (0.04-0.35); Eosinophils % (A) 0 %; HCT 35.8 % (37.2-46.3); HGB 11.3 g/dL (12.0-15.0); Immature Grans, Automated 0.50 %; Lymphocytes # (A) 1.48 X 10*3/uL (0.90-5.00); Lymphocytes % (A) 8.8 %; MCH 28.8 pg (27.0-32.0); MCHC 31.6 g/dL (32.0-37.0); MCV 91.1 FL (80.0-97.0); Monocytes # (A) 0.53 X 10*3/uL (0.20-1.00); Monocytes % (A) 3.2 %; NRBC Per 100 WBC 0 X 10*3/uL (0.00-0.01); Neutrophils # (A) 14.66 X 10*3/uL (1.80-7.70); Neutrophils % (A) 87.2 %; Platelet Count 299 X 10*3/uL (140-440); RBC 3.93 X 10*6/uL (4.10-5.20); RDW 13.9 % (11.5-14.5); WBC 16.81 X 10*3/uL (4.50-10.00)
--- NOTE | 2024-09-05 09:24 | P.DS ---
Providers Date of admission: 09/04/2024 Attending physician: Javed Evans Consults: 09/04/24 17:26 Consult Physician Routine Consulting Provider: Daphne Bocanegra Consult Reason/Comments: post op medical managment Do you want consulting provider notified?: Yes Primary care physician: Artur Porter Hospital Course: Very pleasant 64-year-old female who was admitted under my care yesterday and underwent an uncomplicated total hip replacement. Following surgery she was transferred to the orthopedic floor. She received 2 doses she was started on aspirin for DVT prophylaxis. She was seen on postoperative day #1 and was doing well. She did already been up with physical therapy and navigated stairs and walking with a walker. The incisional wound VAC over her hip was intact. Femoral nerve function was intact but weak. The patient could actively plantarflex and dorsiflex her ankle and her toes. Her foot was warm and well- perfused with brisk capillary refill. She was tentatively cleared for discharge home. Discharge medications were sent prior to hospitalization and included Phoenix for pain control, aspirin 81 mg twice daily for DVT's. Senokot as a stool softener and GI prophylaxis. Omeprazole 40 mg twice daily for GI prophylaxis. And an NSAID. I will also put her on doxycycline given her history of antibiotic suppression. Patient Condition at Discharge: Good Plan - Discharge Summary Discharge Rx Participant: Yes New Discharge Prescriptions: New Doxycycline Monohydrate 100 mg PO BID #28 cap No Action Fluticasone Nasal [place] [Flonase Nasal [place]] 1 spray EA NOSTRIL DAILY PRN PRN Reason: Allergy Symptoms Albuterol Sulfate [Proair Hfa] 1 - 2 puff INHALATION Q6HR PRN PRN Reason: Bronchodilation ALPRAZolam [Xanax] 0.5 mg PO BID PRN PRN Reason: Anxiety Loratadine [Claritin] 10 mg PO DAILY Montelukast [Singulair] 10 mg PO HS Acetaminophen [Tylenol Extra Strength] 1,000 mg PO Q4HR PRN PRN Reason: Pain amLODIPine [Norvasc] 5 mg PO DAILY Irbesartan 300 mg PO HS Fluticasone/Umeclidin/Vilanter [Trelegy Ellipta 200-62.5-25] 1 puff INHALATION DAILY Discharge Medication List ALPRAZolam [Xanax] 0.5 mg PO BID PRN 12/25/17 [History] Albuterol Sulfate [Proair Hfa] 1 - 2 puff INHALATION Q6HR PRN 12/25/17 [History] Fluticasone Nasal [place] [Flonase Nasal [place]] 1 spray EA NOSTRIL DAILY PRN 12/25/17 [History] Loratadine [Claritin] 10 mg PO DAILY 12/30/19 [History] Acetaminophen [Tylenol Extra Strength] 1,000 mg PO Q4HR PRN 09/01/24 [History] Fluticasone/Umeclidin/Vilanter [Trelegy Ellipta 200-62.5-25] 1 puff INHALATION DAILY 09/01/24 [History] Irbesartan 300 mg PO HS 09/01/24 [History] Montelukast [Singulair] 10 mg PO HS 09/01/24 [History] amLODIPine [Norvasc] 5 mg PO DAILY 09/01/24 [History] Doxycycline Monohydrate 100 mg PO BID #28 cap 09/05/24 [Rx] Follow up Appointment(s)/Referral(s): Javed Evans MD [Medical Doctor] - 2 Weeks Activity/Diet/Wound Care/Special Instructions: 1. Weight-bear as tolerated on your operative extremity unless instructed otherwise. Use a walker or other assistive device to ambulate. 2. Leave surgical dressing in place. If your dressing becomes saturated with blood, there is drainage, or the dressing becomes loose please contact the office. 3. It is okay to shower with your surgical dressing, but do not submerge in water (no hot tubs, bath's, swimming etc.) 4. Make sure to take her blood clot prevention medication as prescribed (aspirin, Eliquis, Xarelto, and Plavix are commonly prescribed medications for blood clot prevention) 5. While taking [place] or Percocet for pain make sure you're taking a stool softener (Colace) and drink lots of water. 6. Keep all follow-up appointments as scheduled. You will usually be seen in 1-2 weeks following surgery. 7. Please contact the office with any questions or concerns [phone] Discharge Disposition: HOME WITH HOME HEALTH SERVICES
--- NOTE | 2024-09-05 14:53 | P.CONS ---
History of Present Illness - Reason for Consult Consult date: 09/05/24 Medical management, status post right total hip arthroplasty - History of Present Illness This is a pleasant 64-year-old female who was recently admitted under orthopedics status post right total hip arthroplasty, postop day 1 doing relatively well and going home. Patient reports she follows with Dr. Porter in the outpatient setting with a past medical history of asthma, hypertension, osteoarthritis, anxiety, continued ongoing nicotine dependence, occasional alcohol use and denies any other illicit drug use. Patient does have incentive spirometer at the bedside and encouraged the patient to take home and continue using while awake. Patient did have a mildly elevated white count of 16 although does not appear infectious, denies any shortness of breath or cough, is afebrile and denies any pain, burning or frequency with urination. Patient is extremely anxious to get home and reports her ride is awaiting to pick her up. Patient is medically stable and has been cleared by orthopedics. REVIEW OF SYSTEMS: CONSTITUTIONAL: No fever, no malaise, no fatigue. HEENT: No recent visual problems or hearing problems. Denied any sore throat. CARDIOVASCULAR: No chest pain, orthopnea, PND, no palpitations, no syncope. PULMONARY: No shortness of breath, no cough, no hemoptysis. GASTROINTESTINAL: No diarrhea, no nausea, no vomiting, no abdominal pain. NEUROLOGICAL: No headaches, no weakness, no numbness. HEMATOLOGICAL: Denies any bleeding or petechiae. GENITOURINARY: Denies any burning micturition, frequency, or urgency. MUSCULOSKELETAL/RHEUMATOLOGICAL: Denies any joint pain, swelling, or any muscle pain. ENDOCRINE: Denies any polyuria or polydipsia. The rest of the 14-point review of systems is negative. PHYSICAL EXAMINATION: GENERAL: The patient is alert and oriented x3, not in any acute distress. Well developed, well nourished. HEENT: Pupils are round and equally reacting to light. EOMI. No scleral icterus. No conjunctival pallor. Normocephalic, atraumatic. No pharyngeal erythema. No thyromegaly. CARDIOVASCULAR: S1 and S2 present. No murmurs, rubs, or gallops. PULMONARY: Diminished breath sounds bilaterally otherwise chest is clear to auscultation, no wheezing or crackles. ABDOMEN: Soft, thin, nontender, nondistended, normoactive bowel sounds. No palpable organomegaly. MUSCULOSKELETAL: No joint swelling or deformity. EXTREMITIES: No cyanosis, clubbing, or pedal edema. Right hip surgical dressing is dry and intact with no significant swelling noted NEUROLOGICAL: Gross neurological examination did not reveal any focal deficits. Gait is steady independently with a walker SKIN: No rashes. Assessment: Status post right total hip arthroplasty Leukocytosis, likely reactive as patient does not appear infectious, patient denies burning or pain with frequency in urination and denies any shortness of breath or cough History of asthma, not in exacerbation Hypertension history History of osteoarthritis History of anxiety History of continued ongoing nicotine abuse GI prophylaxis DVT prophylaxis Full code Plan: Patient is admitted to orthopedic status post right total hip arthroplasty working with physical therapy currently up in the room getting dressed and is ambulatory and reports is going home Home medications reviewed and resumed as appropriate Prescription provided for repeat labs in the outpatient setting to monitor white count as it was mildly elevated today. Patient is having no shortness of breath and lung sounds are clear and is afebrile. Patient reports is urinating with no difficulties and denies any pain or burning. Patient reports she did undergo presurgical clearance with Dr. Porter and has a follow-up appointment this week. Encourage incentive spirometer use at least 10 times every hour while awake including taking home and continuing to use Pain management and DVT prophylaxis per orthopedics Patient is medically stable once cleared by orthopedics Thank you kindly for this consultation. We will continue to follow with orthope dics during hospitalization The impression and plan of care has been dictated by Pippa Hannah, Nurse Practitioner as directed. Dr. Bubba MD I have performed a history and examination and MDM of this patient, discussed the same with the dictator, and agree with the dictator's assessment and plan as written ,documented as a scribe. Based on total visit time, I have performed more than 50% of the visit. Past Medical History Past Medical History: Asthma, Hypertension, Osteoarthritis (OA) Additional Past Medical History / Comment(s): SEASONAL ALLERGIES History of Any Multi-Drug Resistant Organisms: None Reported Past Surgical History: Appendectomy, Cholecystectomy, Hysterectomy Additional Past Surgical History / Comment(s): COLONOSCOPY Past Anesthesia/Blood Transfusion Reactions: No Reported Reaction Past Psychological History: Anxiety Smoking Status: Current every day smoker Past Alcohol Use History: Occasional Additional Past Alcohol Use History / Comment(s): SMOKES 1/2 PPD SINCE AGE 18 Past Drug Use History: None Reported - Past Family History Father Family Medical History: Cancer Mother Family Medical History: Cancer Sister(s) Family Medical History: Cancer Additional Family Medical History / Comment(s): HAS 2 SISTERS WITH THYROID CANCER Medications and Allergies Home Medications Medication Instructions Recorded Confirmed Type ALPRAZolam [Xanax] 0.5 mg PO BID PRN 12/25/17 09/04/24 History Albuterol Sulfate [Proair Hfa] 1 - 2 puff INHALATION Q6HR PRN 12/25/17 09/04/24 History Fluticasone Nasal [place] [Flonase 1 spray EA NOSTRIL DAILY PRN 12/25/17 09/04/24 History Nasal [place]] Loratadine [Claritin] 10 mg PO DAILY 12/30/19 09/04/24 History Acetaminophen [Tylenol Extra 1,000 mg PO Q4HR PRN 09/01/24 09/04/24 History Strength] Fluticasone/Umeclidin/Vilanter 1 puff INHALATION DAILY 09/01/24 09/04/24 History [Trelegy Ellipta 200-62.5-25] Irbesartan 300 mg PO HS 09/01/24 09/04/24 History Montelukast [Singulair] 10 mg PO HS 09/01/24 09/04/24 History amLODIPine [Norvasc] 5 mg PO DAILY 09/01/24 09/04/24 History Doxycycline Monohydrate 100 mg PO BID #28 cap 09/05/24 Rx Allergies Allergy/AdvReac Type Severity Reaction Status Date / Time clarithromycin [From Biaxin] AdvReac Nausea & Verified 09/04/24 14:04 Vomiting levofloxacin [From Levaquin] AdvReac Rapid Verified 09/04/24 14:04 Heart Rate Penicillins AdvReac Nausea & Verified 09/04/24 14:04 Vomiting Physical Exam Vitals: Vital Signs Temp Pulse Pulse Resp BP Pulse Ox 09/05/24 08:13 94 L 09/05/24 07:07 98.0 F 68 17 101/63 94 L 09/05/24 01:35 98 F 55 L 16 92/60 96 09/04/24 21:49 78 111/72 94 L 09/04/24 21:46 68 109/70 99 09/04/24 20:03 90 89 L 09/04/24 19:32 68 109/70 99 09/04/24 19:20 98.1 F 65 16 110/74 96 09/04/24 19:17 98.1 F 71 17 117/74 96 09/04/24 18:45 97.9 F 72 16 114/73 98 09/04/24 18:30 70 16 112/63 99 09/04/24 18:15 69 18 112/60 100 09/04/24 18:00 73 16 110/61 99 09/04/24 17:45 60 18 111/98 96 09/04/24 14:59 64 18 118/70 99 09/04/24 14:54 68 18 140/70 98 Intake and Output 09/04/24 09/05/24 09/05/24 22:59 06:59 14:59 Intake Total 1251 500 120 Output Total 300 Balance 951 500 120 Intake: IV 1251 Oral 500 120 Output: Estimated Blood Loss 300 Other: Voiding Method Bedside Commode # Voids 1 Weight 74.3 kg Results CBC & Chem 7: 09/05/24 03:19 Labs: Abnormal Lab Results - Last 24 Hours (Table) 09/05/24 Range/Units 03:19 WBC 16.81 H (4.50-10.00) X 10*3/uL RBC 3.93 L (4.10-5.20) X 10*6/uL Hgb 11.3 L (12.0-15.0) g/dL Hct 35.8 L (37.2-46.3) % MCHC 31.6 L (32.0-37.0) g/dL Immature Gran # 0.09 H (0.00-0.04) X 10*3/uL Neutrophils # 14.66 H (1.80-7.70) X 10*3/uL Eosinophils # 0 L (0.04-0.35) X 10*3/uL
[2024-09-05] MEDS ORDERED: TEMAZEPAM 15 MG CAP PO PRN (22:00)
== END 2024-09-05 12:13 | disposition home health service (06) ==
LOC: OR 13:43 → 4SSUR 17:44 → OR 09-05 12:13
PROVIDERS: ATTEND Orthopaedic Surgery
DX: M16.11 Unilateral primary osteoarthritis, right hip (principal); J45.909 Unspecified asthma, uncomplicated; I10 Essential (primary) hypertension; M85.80 Other specified disorders of bone density and structure, unspecified site; F17.210 Nicotine dependence, cigarettes, uncomplicated; Z88.0 Allergy status to penicillin; Z88.1 Allergy status to other antibiotic agents; Z90.710 Acquired absence of both cervix and uterus
CPT/HCPCS: 94640 ×2; 94760; 97161; 85025; 82306; 73501; 27130; J2250; J1100; J0690 ×2; J2405; J3010; J1885; J1171; J1790; J1308; J0169; 64473